=== PATIENT | female | born 1995 | race Caucasian/White ===

== ENCOUNTER 2020-01-25 15:02 | Inpatient (IN) | payer BC, OTHER ==
[2020-01-25] VITALS (22 sets, daily range): BP systolic 118–150; BP diastolic 62–93
[~2020-01-25] VITALS: Ht 62 cm; Wt 75.5 kg
--- NOTE | 2020-01-25 15:00 | NUR ---
SHERINE ARAUZ presented to unit via WHEELCHAIR from HOME, accompanied by S/O , with c/o SROM. SHERINE ARAUZ weighed, gowned, voided, and to bed. EFHM and TOCO applied, VS taken. SHERINE ARAUZ oriented to bed controls, call light, TV, heat, and A/C controls.
[2020-01-25] MEDS ORDERED: D5 LR IV SOLUTION 1,000 ML IV ONE (15:59)
[2020-01-25 16:39] LABS: BILIRUBIN,URINE NEGATIVE (NEGATIVE); CLARITY,URINE CLOUDY; COLOR,URINE YELLOW; GLUCOSE, URINE (UA) NEGATIVE (NEGATIVE); KETONES,URINE NEGATIVE (NEGATIVE); LEUKOCYTE ESTERASE ,URINE NEGATIVE (NEGATIVE); NITRITE,URINE NEGATIVE (NEGATIVE); PH,URINE 7.5 (5-9); PROTEIN,URINE 1+ (NEGATIVE)
[2020-01-25 16:53] LABS: RBC,URINE 25-50 /HPF
[2020-01-25] MEDS ORDERED: PNV1TABL81 PO (16:53)
[2020-01-25 16:54] LABS: AMORPHOUS SEDIMENT,UR FEW AMOR PHOSPHATE /LPF; BACTERIA,URINE TRACE /HPF
[2020-01-25 17:02] LABS: BASOPHILS % (AUTO) 0 % (0-10); EOSINOPHILS % (AUTO) 0 % (0-10); HEMATOCRIT 37 % (35-52); HEMOGLOBIN 12.3 g/dL (11.5-16.0); LYMPHOCYTES # (AUTO) 1.7 10^3/uL (1.0-4.0); LYMPHOCYTES % (AUTO) 13 % (12-44); MEAN CORPUSCULAR HEMOGLOBIN 30 pg (25-34); MEAN CORPUSCULAR HGB CONC 34 g/dL (32-36); MEAN CORPUSCULAR VOLUME 91 fL (80-99); MEAN PLATELET VOLUME 10.1 fL (9.0-12.2); MONOCYTES # (AUTO) 0.8 10^3/uL (0.0-1.0); MONOCYTES % (AUTO) 6 % (0-12); NEUTROPHILS # (AUTO) 10.9 10^3/uL (1.8-7.8); NEUTROPHILS % (AUTO) 80 % (42-75); PLATELET COUNT 237 10^3/uL (130-400); WHITE BLOOD COUNT 13.5 10^3/uL (4.3-11.0)
[2020-01-25] MEDS ORDERED: OXYTOCIN PRE-MIX DRIP 500 ML IV ONE (18:46)
[2020-01-25] MEDS ORDERED: OXYTOCIN PRE-MIX DRIP 500 ML IV SCH (19:02)
[2020-01-25] MEDS: D5 LR IV SOLUTION 1,000 ML IV SCH (19:05)
--- NOTE | 2020-01-25 19:57 | History & Physical-OB ---
OB - Chief Complaint & HPI Date/Time Date of Admission: 01/25/2020 Date seen by a Provider: Jan 25, 2020 Time Seen by a Provider: 06:55 Chief Complaint/History OB-Reason for Admission/Chief: Rupture of Membranes Hx : 2 Hx Para: 0 Expected Date of Delivery: Feb 03, 2020 Gestational Age in Weeks: 38 Gestational Age in Days: 5 History of Labs AB+, Ab neg, Rub Non Imm, HIV/HepB/RPR NR, GBS neg, Abnormal 1 hr GTT, Normal 3 hr GTT Allergies and Home Medications Allergies Coded Allergies: No Known Drug Allergies (Unverified , 01/25/20) Home Medications Pnv No.122/Iron/Folic Acid 1 Each Tablet, 1 EACH PO DAILY, (Reported) Patient Home Medication List Home Medication List Reviewed: Yes OB - History Hx of Present Care: Yes Ultrasounds: Normal mid trimester US Obstetrical Complications: None Medical Complications: None Obstetrical History Hx : 2 Hx Para: 0 Number of Living Children: 0 Delivery History Adverse Rxn to Tranfusion: No Patient Past Medical History None Social History/Family History HIV/AIDS: No Recent Infectious Disease Expo: No Sexually Transmitted Disease: No Alcohol Use: Denies Use Recreational Drug Use: No Smoking Cessation: Never smoker Immunizations Tetanus Booster (TDap): Less than 5yrs Date of Influenza Vaccine: Nov 29, 2019 Rubella: not immune RPR/VDRL: Negative GBS Status: Negative HBsAG: Negative OB - Admission Exam Physical Exam Vitals: Vital Signs 01/25/20 01/25/20 01/25/20 17:06 18:06 18:36 Temp 36.6 Pulse 80 Resp 18 B/P (MAP) 121/79 (93) Pulse Ox 98 O2 Delivery Room Air HEENT: NCAT Heart: Rhythm Normal Lungs: Clear Abdomen: Gravid Cervical Dilatation: 7cm Effacement: 100% Station: -1 Membranes: Ruptured Amniotic Fluid: Clear Heart Rate: 130's Accelerations: Accelerations Present Decelerations: No Decelerations Short Term Variability: Present Contractions on Admission: < 5 Minutes Apart Intensity: Moderate Labs Laboratory Tests Test 01/25/20 16:10 01/25/20 18:50 Range/Units White Blood Count 13.5 H 4.3-11.0 10^3/uL Red Blood Count 4.04 3.80-5.11 10^6/uL Hemoglobin 12.3 11.5-16.0 g/dL Hematocrit 37 35-52 % Mean Corpuscular Volume 91 80-99 fL Mean Corpuscular Hemoglobin 30 25-34 pg Mean Corpuscular Hemoglobin Concent 34 32-36 g/dL Red Cell Distribution Width 11.6 10.0-14.5 % Platelet Count 237 130-400 10^3/uL Mean Platelet Volume 10.1 9.0-12.2 fL Immature Granulocyte % (Auto) 1 % Neutrophils (%) (Auto) 80 H 42-75 % Lymphocytes (%) (Auto) 13 12-44 % Monocytes (%) (Auto) 6 0-12 % Eosinophils (%) (Auto) 0 0-10 % Basophils (%) (Auto) 0 0-10 % Neutrophils # (Auto) 10.9 H 1.8-7.8 10^3/uL Lymphocytes # (Auto) 1.7 1.0-4.0 10^3/uL Monocytes # (Auto) 0.8 0.0-1.0 10^3/uL Eosinophils # (Auto) 0.0 0.0-0.3 10^3/uL Basophils # (Auto) 0.0 0.0-0.1 10^3/uL Immature Granulocyte # (Auto) 0.1 0.0-0.1 10^3/uL Urine Color YELLOW Urine Clarity CLOUDY Urine pH 7.5 5-9 Urine Specific [place] 1.010 L 1.016-1.022 Urine Protein 1+ H NEGATIVE Urine Glucose (UA) NEGATIVE NEGATIVE Urine Ketones NEGATIVE NEGATIVE Urine Nitrite NEGATIVE NEGATIVE Urine Bilirubin NEGATIVE NEGATIVE Urine Urobilinogen 0.2 < = 1.0 MG/DL Urine Leukocyte Esterase NEGATIVE NEGATIVE Urine RBC (Auto) 3+ H NEGATIVE Urine RBC 25-50 H /HPF Urine WBC 2-5 /HPF Urine Squamous Epithelial Cells 10-25 H /HPF Urine Crystals PRESENT H /LPF Urine Amorphous Sediment FEW RIGOBERTO PHOSPHATE H /LPF Urine Bacteria TRACE /HPF Urine Casts NONE /LPF Urine Mucus NEGATIVE /LPF Urine Culture Indicated NO OB - Assessment/Plan/Diagnosis Assessment Assessment: active labor, rupture of membranes Admission Dx Third Trimester 38 week gestation SROM Admission Status: Inpatient Order (span 2 midnights) Reason for Inpatient Admission: Labor Plan Plan: Expectant Management Other Plan 24 yo @ 38.5 wga here after SROM at home Plan Expectant management GBS neg Copy Copies To 1: CHERYL MARCELINO MD, HOLLY R MD Jan 25, 2020 19:57
[2020-01-25] MEDS ORDERED: LIDOCAINE/EPI 2% 1:200,00 (XYLOCAINE) 10 ML VIAL ONE (22:36)
[2020-01-25] MEDS ORDERED: MINERAL OIL CONCENTRATE 99.9% 15 ML UDC ONE (22:36)
[2020-01-25] MEDS ORDERED: PROMETHAZINE INJ 25 MG/ML (PHENERGAN) AMP ONE (23:08)
[2020-01-25] MEDS ORDERED: PROMETHAZINE INJ 25 MG/ML (PHENERGAN) AMP IVP ONE (23:15)
[2020-01-26] VITALS (24 sets, daily range): BP systolic 99–129; BP diastolic 51–87
[2020-01-26] MEDS: D5 LR IV SOLUTION 1,000 ML IV SCH (00:41)
[2020-01-26] MEDS ORDERED: OXYTOCIN PRE-MIX DRIP 500 ML IV SCH (03:04)
--- NOTE | 2020-01-26 03:04 | OB Labor & Delivery Record ---
Vag Delivery Note Vag Delivery Note Date of Delivery: 01/26/20 Preoperative Diagnosis: Asia Contreras is a (24 /Para 2 / 0,Gestational Age (wks)38.5 wga here after SROM at home Postoperative Diagnosis: Same Surgeon: CHERYL MARCELINO Hanger: None Anesthesia: None Delivery Type: @ 0230 Findings: Viable male infant, apgars 7/9, weight 7#9, 3420 grams Lacerations: Bilateral vaginal wall lacerations, no perineal laceration Intact placenta with 3 vessel cord. No nuchal cord, body cord or shoulder dystocia Estimated Blood Loss: 100 ml Complications: None Condition: Stable Description of Procedure: The patient is a 24 year old female who presented in labor after SROM at home. She was admitted and informed consent was obtained. Her labor course was unremarkable. She progressed to complete dilatation and began to push. She was then set up for delivery. The 's head was delivered atraumatically in the SMITHA position. The shoulders and remainder of the infant's body were then delivered after Marlo Manuver. Upon delivery, the head was held below the level of the perineum and the mouth and nares were bulb suctioned. The cord was doubly clamped and cut by FOB and the infant was attended to by the pediatric staff on maternal abdomen. An intact placenta with 3-vessel cord delivered via Helen and there was found to be minimal bleeding.~ Vigorous fundal massage was performed and the fundus was found to be firm. IV oxytocin was given. Examination of the vagina and perineum revealed bilateral vaginal wall lacerations repaired in the usual fashion with 3-0 vicryl suture. Following the repair, sponge, instrument and needle counts were correct. Mom and baby were both in stable condition in the labor suite. Vitals - Labs Vital Signs - I&O Vital Signs Date Time Temp Pulse Resp B/P (MAP) Pulse Ox O2 Delivery O2 Flow Rate FiO2 01/26/20 00:05 36.9 76 18 124/68 (86) Room Air 01/25/20 23:50 89 18 122/93 (103) Room Air 01/25/20 23:35 68 18 125/75 (92) Room Air 01/25/20 23:20 71 18 124/79 (94) Room Air 01/25/20 23:05 75 18 132/83 (99) Room Air 01/25/20 22:50 72 18 130/82 (98) Room Air 01/25/20 22:35 36.6 73 18 142/84 (103) Room Air 01/25/20 22:05 67 18 126/71 (89) Room Air 01/25/20 21:35 68 18 127/88 (101) Room Air 01/25/20 21:20 70 18 125/82 (96) Room Air 01/25/20 21:05 81 18 135/85 (102) Room Air 01/25/20 20:55 74 18 150/90 (110) Room Air 01/25/20 20:40 81 18 122/85 (97) Room Air 01/25/20 20:25 79 18 122/81 (95) Room Air 01/25/20 20:05 80 18 121/86 (98) Room Air 01/25/20 19:50 84 18 121/80 (94) Room Air 01/25/20 19:35 89 18 124/80 (95) Room Air 01/25/20 19:20 86 18 136/62 (86) Room Air 01/25/20 19:05 36.6 78 18 118/81 (93) Room Air 01/25/20 18:36 80 18 121/79 (93) 01/25/20 18:06 36.6 70 18 140/80 (100) 01/25/20 17:06 36.5 71 18 98 Room Air 01/25/20 17:00 71 18 126/81 (96) Labs Laboratory Tests 01/25/20 16:10: White Blood Count 13.5H, Red Blood Count 4.04, Hemoglobin 12.3, Hematocrit 37, Mean Corpuscular Volume 91, Mean Corpuscular Hemoglobin 30, Mean Corpuscular Hemoglobin Concent 34, Red Cell Distribution Width 11.6, Platelet Count 237, Mean Platelet Volume 10.1, Immature Granulocyte % (Auto) 1, Neutrophils (%) (Auto) 80H, Lymphocytes (%) (Auto) 13, Monocytes (%) (Auto) 6, Eosinophils (%) (Auto) 0, Basophils (%) (Auto) 0, Neutrophils # (Auto) 10.9H, Lymphocytes # (Auto) 1.7, Monocytes # (Auto) 0.8, Eosinophils # (Auto) 0.0, Basophils # (Auto) 0.0, Immature Granulocyte # (Auto) 0.1, Urine Color YELLOW, Urine Clarity CLOUDY, Urine pH 7.5, Urine Specific [place] 1.010L, Urine Protein 1+H, Urine Glucose (UA) NEGATIVE, Urine Ketones NEGATIVE, Urine Nitrite NEGATIVE, Urine Bilirubin NEGATIVE, Urine Urobilinogen 0.2, Urine Leukocyte Esterase NEGATIVE, Urine RBC (Auto) 3+H, Urine RBC 25-50H, Urine WBC 2-5, Urine Squamous Epithelial Cells 10-25H, Urine Crystals PRESENTH, Urine Amorphous Sediment FEW RIGOBERTO PHOSPHATEH, Urine Bacteria TRACE, Urine Casts NONE, Urine Mucus NEGATIVE, Urine Culture Indicated NO 01/25/20 18:50: CHERYL MARCELINO MD Jan 26, 2020 03:04
[2020-01-26] MEDS ORDERED: MEASLES,MUMPS,RUBELLA 1 EA INJ SQ ONE (03:15)
[2020-01-26] MEDS ORDERED: TETANUS,DIPTH,PERTUSS P/F (BOOSTRIX) 0.5 ML VIAL IM ONE (03:15)
[2020-01-26] MEDS ORDERED: BENZOCAINE/MENTHOL (DERMOPLAST) 60 ML CAN TP PRN (03:15)
[2020-01-26] MEDS ORDERED: DIBUCAINE (NUPERCAINAL) 1% OINT 30 GM TOP PRN (03:15)
[2020-01-26] MEDS ORDERED: WITCH HAZEL(TUCKS) 40 EA JAR TOP PRN (03:15)
[2020-01-26] MEDS: IBUPROFEN 600 MG (MOTRIN) TAB PO SCH ×3 (03:34→21:59)
[2020-01-26] MEDS: ACETAMINOPHEN 500 MG TAB (TYLENOL) PO SCH ×2 (03:34→14:54)
--- NOTE | 2020-01-26 05:30 | NUR ---
Pt up to the bathroom. Positive void. moderate rubra. Pericare completed. Pt assisted back to bed. Pt wishes to stay in current room at this time. Will let rn know when she is ready to move.
[2020-01-26] MEDS ORDERED: CATHETER FLUSH 10 ML SYR IV SCH (06:00)
--- NOTE | 2020-01-26 08:45 | NUR ---
Pt to [facility], [facility], via wheelchair, accompanied by RN, infant, and S.O, with all personal belongings. No s/s of distress
--- NOTE | 2020-01-26 08:50 | NUR ---
Pt oriented to new room, call light, bed controls, and PP packet. Assessment completed at this time. VSS. FFU/-1, light samia mayo noted, no clots expressed at this time. Pt denies any needs or concerns. Mother reports last fed at 0330. Explained to pt feeding needs and frequency, verbalizes understanding. Infant to breast at this time. Will call if in need of assistance.
[2020-01-26] MEDS: DOCUSATE SODIUM 100 MG (COLACE) CAP PO SCH ×2 (08:51→21:59)
[2020-01-27] MEDS: ACETAMINOPHEN 500 MG TAB (TYLENOL) PO SCH (01:44)
[2020-01-27 04:10] VITALS: BP 122/74
[2020-01-27 05:48] LABS: BASOPHILS % (AUTO) 0 % (0-10); EOSINOPHILS # (AUTO) 0.1 10^3/uL (0.0-0.3); EOSINOPHILS % (AUTO) 1 % (0-10); HEMATOCRIT 32 % (35-52); HEMOGLOBIN 10.3 g/dL (11.5-16.0); LYMPHOCYTES # (AUTO) 2.4 10^3/uL (1.0-4.0); LYMPHOCYTES % (AUTO) 17 % (12-44); MEAN CORPUSCULAR HEMOGLOBIN 31 pg (25-34); MEAN CORPUSCULAR HGB CONC 33 g/dL (32-36); MEAN CORPUSCULAR VOLUME 96 fL (80-99); MEAN PLATELET VOLUME 10.1 fL (9.0-12.2); MONOCYTES # (AUTO) 0.9 10^3/uL (0.0-1.0); MONOCYTES % (AUTO) 6 % (0-12); NEUTROPHILS # (AUTO) 10.6 10^3/uL (1.8-7.8); NEUTROPHILS % (AUTO) 75 % (42-75); PLATELET COUNT 182 10^3/uL (130-400); WHITE BLOOD COUNT 14.2 10^3/uL (4.3-11.0)
[2020-01-27 08:10] LABS: LYMPHOCYTES % (MANUAL) 18 %; MONOCYTES % (MANUAL) 2 %; NEUTROPHILS % (MANUAL) 80 %; RBC MORPH NORMAL; TOXIC GRANULATION/VACUOLAZATIO 2+
--- NOTE | 2020-01-27 08:58 | Discharge Summary ---
Diagnosis/Chief Complaint Date of Admission Jan 25, 2020 at 22:52 Date of Discharge January 27, 2020 Discharge Date: Jan 27, 2020 Admission Diagnosis Admission Diagnosis 1. Intrauterine at 38 weeks gestation Discharge Diagnosis 1. Intrauterine at 38 weeks gestation Reason Hospital Visit 24-year-old 2 now T1L1 who initially presented to labor and delivery during the late evening of January 25, 2020 with spontaneous rupture of membranes. Patient was noted to be at 38 weeks 6 days gestation. Her GBS status at 36 weeks was noted to be negative. Patient received care through [facility] with Dr. Ramirez. Discharge Summary-OBS Procedures 1. Spontaneous vaginal delivery 2. Repair of bilateral vaginal wall lacerationDr. 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 Patient delivered a term viable male. See labor and delivery note for full details Following delivery she underwent routine care orders. She had no complications during the remainder of hospital stay. She had initial hemoglobin on January 24 of 12.3 and this was compared to hemoglobin of 10.3 on day of . She had tolerated regular diet and was ambulatory without shortness of breath or leg pain. She was eager for dismissal in the morning of January 27, 2020. Pending Labs Laboratory Tests 01/27/20 05:20: White Blood Count 14.2, Red Blood Count 3.30, Hemoglobin 10.3, Hematocrit 32, Mean Corpuscular Volume 96, Mean Corpuscular Hemoglobin 31, Mean Corpuscular Hemoglobin Concent 33, Red Cell Distribution Width 12.0, Platelet Count 182, Mean Platelet Volume 10.1, Immature Granulocyte % (Auto) 1, Neutrophils (%) (Auto) 75, Lymphocytes (%) (Auto) 17, Monocytes (%) (Auto) 6, Eosinophils (%) (Auto) 1, Basophils (%) (Auto) 0, Neutrophils # (Auto) 10.6, Lymphocytes # (Auto) 2.4, Monocytes # (Auto) 0.9, Eosinophils # (Auto) 0.1, Basophils # (Auto) 0.0, Immature Granulocyte # (Auto) 0.1, Neutrophils % (Manual) 80, Lymphocytes % (Manual) 18, Monocytes % (Manual) 2, Toxic Granulation 2+, Blood Morphology Comment NORMAL Discharge Instructions to patient/family Please see electronic discharge instructions given to patient. Discharge Medications Reviewed and agree with Discharge Medication list on patient's Discharge Instruction sheet Clinical Quality Measures DVT/VTE Risk/Contraindication: Risk Factor Score Per Nursin RFS Level Per Nursing on Admit: 1=Low/No VTE PPX MICHAEL CLEANING MD Jan 27, 2020 08:58
--- NOTE | 2020-01-27 09:01 | Discharge Inst-Women's Service ---
Discharge Inst-Women's Serv Depart Medication/Instructions New, Converted or Re-Newed RX: Other Instructions for cramps may take [id number] ibuprofen 200 mg and take 3 tablets as needed every 6 hours Problems Reviewed?: Yes Consults/Follow Up Additional Follow Up: Yes (Dr Ramirez in 6 weeks.) Activity Driving Instructions: No Driving for 1 Week Nothing Inside Vagina: No [place] (for 6 weeks.) Diet Discharge Diet: Regular Diet Return to The Hospital For: as below Symptoms to Report to : Bleeding Excessive, Pain Increased, Vaginal Discharge Foul For Any Problems or Questions: Contact Your Physician MICHAEL CLEANING MD Jan 27, 2020 09:01
[2020-01-27] MEDS: IBUPROFEN 600 MG (MOTRIN) TAB PO SCH (09:09)
[2020-01-27] MEDS: DOCUSATE SODIUM 100 MG (COLACE) CAP PO SCH (09:09)
--- NOTE | 2020-01-27 09:10 | NUR ---
RN to room for assessment. FFU/-1, perla mayo reported, two dime sized clots passed. VSS. Pt denies any needs or concerns at this time. Plans to discharge Addendum: 01/27/20 at 0926 by JYOTI SANTO RN Pt refused MMR vaccine at this time
[2020-01-27 09:11] VITALS: BP 117/68
--- NOTE | 2020-01-27 09:30 | NUR ---
Discharge instructions explained to pt with copy provided. Follow up care scheduled for pt. Pt verbalizes understanding and signs to verify. Denies any needs or concerns at this time
--- NOTE | 2020-01-27 14:05 | NUR ---
Pt wheeled off unit via wheelchair accompanied by RN, S.O, and . All personal belongings with pt. No s/s of distress
== END 2020-01-27 14:05 | disposition home or self-care (01) | DRG 807 ==
LOC: WSo 15:02 → LDRP 15:03 → WSo 22:49 → LDRP 22:52
PROVIDERS: ADMIT Family Medicine; ATTEND Family Medicine
PROC: 10E0XZZ Delivery of Products of Conception, External Approach (ICD-10-PCS; principal; 2020-01-26)
PROC: 0UQGXZZ Repair Vagina, External Approach (ICD-10-PCS; 2020-01-26)
DX: O71.4 Obstetric high vaginal laceration alone (principal); Z37.0 Single live birth; Z3A.38 38 weeks gestation of pregnancy
CPT/HCPCS: 36415; 81000; 85007; 85025; 85027; 86850; 86900; 86901; 87635; 99212

== ENCOUNTER 2022-03-28 01:39 | Inpatient (IN) | payer MEDICAID ==
[2022-03-28] VITALS (28 sets, daily range): BP systolic 100–148; BP diastolic 51–95
[~2022-03-28] VITALS: Ht 157.5 cm; Wt 81.9 kg
[~2022-03-28 01:39] MED LIST: PNV1TABL81 PO
[2022-03-28] MEDS ORDERED: D5 LR IV SOLUTION 1,000 ML IV ONE (02:19)
[2022-03-28] MEDS ORDERED: MINERAL OIL 30 ML UDC TOP PRN (02:30)
[2022-03-28] MEDS ORDERED: D5 LR IV SOLUTION 1,000 ML IV SCH (02:30)
[2022-03-28 02:35] LABS: BASOPHILS % (AUTO) 0 % (0-10); EOSINOPHILS % (AUTO) 0 % (0-10); HEMATOCRIT 36 % (35-52); HEMOGLOBIN 12.5 g/dL (11.5-16.0); LYMPHOCYTES # (AUTO) 1.9 10^3/uL (1.0-4.0); LYMPHOCYTES % (AUTO) 16 % (12-44); MEAN CORPUSCULAR HEMOGLOBIN 32 pg (25-34); MEAN CORPUSCULAR HGB CONC 35 g/dL (32-36); MEAN CORPUSCULAR VOLUME 91 fL (80-99); MEAN PLATELET VOLUME 10.6 fL (9.0-12.2); MONOCYTES # (AUTO) 0.7 10^3/uL (0.0-1.0); MONOCYTES % (AUTO) 6 % (0-12); NEUTROPHILS # (AUTO) 9.6 10^3/uL (1.8-7.8); NEUTROPHILS % (AUTO) 78 % (42-75); PLATELET COUNT 202 10^3/uL (130-400); WHITE BLOOD COUNT 12.3 10^3/uL (4.3-11.0)
[2022-03-28] MEDS ORDERED: OXYTOCIN PRE-MIX DRIP 500 ML IV ONE (02:49)
[2022-03-28] MEDS ORDERED: MINERAL OIL 30 ML UDC ONE (02:49)
--- NOTE | 2022-03-28 02:58 | History & Physical-OB ---
OB - Chief Complaint & HPI Date/Time Date of Admission: Date of Admission: Date seen by a Provider: Mar 28, 2022 Time Seen by a Provider: 02:45 Chief Complaint/History OB-Reason for Admission/Chief: Onset of Labor Hx : 3 Hx Para: 1 Expected Date of Delivery: Mar 30, 2022 Gestational Age in Weeks: 39 Gestational Age in Days: 5 History of Labs AB pos, antibody neg, RNI. HIV/HepB/HepC/RPR NR. GC/chlamydia neg. GBS neg. TSH 4.64 at 37 weeks. Other Late start of care, initial visit labeled as 9 weeks based on LMP, but US same day showed 24 weeks, had 2 further visits at 37 and 38 weeks, reportedly due to family illnesses. Allergies and Home Medications Allergies Coded Allergies: No Known Drug Allergies (Unverified , 01/25/20) Patient Home Medication List Home Medication List Reviewed: Yes Pnv No.122/Iron/Folic Acid ( Multi Tablet) 1 Each Tablet, 1 EACH PO DAILY, (Reported) Entered as Reported by: MARIAMA ELMORE on 01/25/20 1811 Last Action: Reviewed OB - History Hx of Present Ultrasounds: Normal mid trimester US Obstetrical Complications: Other (limited care, seen at 24 weeks, 37 and 38 weeks, no gestational diabetes screen) Medical Complications: None Information Induced Hypertension: No Maternal Gestational Diabetes: No Hemorrhage: No Obstetrical History Hx : 3 Hx Para: 1 Hx # Term Pregnancies: 1 Hx # Pregnancies: 0 Number of Living Children: 1 Hx Termination: No Hx Total # of Abortions (Spona: 1 Hx Multiple Gestation: No Hx Ectopic : No Hx Stillbirth: No Hx Complication: No Hx Induced Hypertens: No Hx Maternal Gestational Diabet: No Hx Hemorrhage: No Delivery History Hx Dystocia: No Hx Forceps Assisted Delivery: No Hx Vacuum Extraction Assisted: No Hx Placenta Abnormality: No Hx Distress: No Hx Large For Gestational Age I: No Hx Small for Gestational Age I: No Hx Section: No Hx Vaginal Delivery Post C-Sec: No Hx Blood Disorders: No Adverse Rxn to Tranfusion: No Patient Past Medical History None Social History/Family History Alcohol Use: Denies Use Recreational Drug Use: No Smoking Cessation: Never smoker Immunizations Influenza Vaccine Up-to-Date: No; Not Current Tetanus Booster (TDap): Less than 5yrs (2019) Rubella: not immune RPR/VDRL: Negative GBS Status: Negative HBsAG: Negative OB - Admission Exam Physical Exam HEENT: NCAT Extremities: Normal Cervical Dilatation: 8cm Effacement: Other (90%) Station: -3 Membranes: Intact (AROM at time of exam) Heart Rate: 130's Accelerations: Accelerations Present Short Term Variability: Present Picker Packer Variability: Average (6-25) Contractions on Admission: < 5 Minutes Apart Labs Laboratory Tests Test 03/28/22 02:10 Range/Units White Blood Count 12.3 H 4.3-11.0 10^3/uL Red Blood Count 3.97 3.80-5.11 10^6/uL Hemoglobin 12.5 11.5-16.0 g/dL Hematocrit 36 35-52 % Mean Corpuscular Volume 91 80-99 fL Mean Corpuscular Hemoglobin 32 25-34 pg Mean Corpuscular Hemoglobin Concent 35 32-36 g/dL Red Cell Distribution Width 11.6 10.0-14.5 % Platelet Count 202 130-400 10^3/uL Mean Platelet Volume 10.6 9.0-12.2 fL Immature Granulocyte % (Auto) 0 % Neutrophils (%) (Auto) 78 H 42-75 % Lymphocytes (%) (Auto) 16 12-44 % Monocytes (%) (Auto) 6 0-12 % Eosinophils (%) (Auto) 0 0-10 % Basophils (%) (Auto) 0 0-10 % Neutrophils # (Auto) 9.6 H 1.8-7.8 10^3/uL Lymphocytes # (Auto) 1.9 1.0-4.0 10^3/uL Monocytes # (Auto) 0.7 0.0-1.0 10^3/uL Eosinophils # (Auto) 0.0 0.0-0.3 10^3/uL Basophils # (Auto) 0.0 0.0-0.1 10^3/uL Immature Granulocyte # (Auto) 0.1 0.0-0.1 10^3/uL OB - Assessment/Plan/Diagnosis Assessment Admission Dx Active labor Term intrauterine Limited care GBS negative Rubella non-immune Admission Status: Inpatient Order (span 2 midnights) Reason for Inpatient Admission: Labor, delivery and course Plan Plan: Expectant Management (AROM done at time of exam with clear fluid return) Problems: (1) Active labor at term Assessment & Plan: Anticipate vaginal delivery (2) Rubella non-immune status, antepartum Assessment & Plan: MMR LAUREN RADER MD Mar 28, 2022 02:58
[2022-03-28] MEDS ORDERED: CATHETER FLUSH 10 ML SYR IV SCH ×2 (06:00→14:00)
--- NOTE | 2022-03-28 07:55 | OB Labor & Delivery Record ---
Vag Delivery Note Vag Delivery Note Date of Delivery: 03/28/22 Preoperative Diagnosis: Asia Contreras is a (26 /Para 3 / 1,Gestational Age (wks)39 weeks that presented in active labor Postoperative Diagnosis: Same Surgeon: CHERYL MARCELINO MD Professor Of Oceanography: Jayne Felix MS4 Anesthesia: Natural Delivery Type: @ 0737 Findings: Viable male , apgars 9/9, weight 8#1, 3655 grams Lacerations: right yoselyn urethral laceration Intact placenta with 3 vessel cord. No nuchal cord, body cord or shoulder dystocia Estimated Blood Loss: 125 ml Complications: None Condition: Stable Description of Procedure: The patient is a 26 year old female who presented in active labor. She was admitted and informed consent was obtained. Her labor course was unremarkable. She progressed to complete dilatation and began to push. She was then set up for delivery. The infant's head was delivered atraumatically in the ANNABEL position. The shoulders and remainder of the infant's body were then delivered without difficulty. Upon delivery, the infant was vigorous and placed on maternal chest and the mouth and nares were bulb suctioned. After a delay of 2 mins cord was doubly clamped and cut and the remained on maternal chest. An intact placenta with 3-vessel cord delivered via Helen and there was found to be minimal bleeding.~ Vigorous fundal massage was performed and the fundus was found to be firm. IV oxytocin was given. Examination of the vagina and perineum revealed a small right periurethral laceration that did not require repair. Following the repair, sponge, instrument and needle counts were correct. Mom and baby were both in stable condition in the labor suite. Vitals - Labs Vital Signs - I&O Vital Signs Date Time Temp Pulse Resp B/P (MAP) Pulse Ox O2 Delivery O2 Flow Rate FiO2 03/28/22 04:24 95 20 148/95 (112) Room Air 03/28/22 03:54 69 18 117/79 (92) Room Air 03/28/22 03:42 77 20 117/72 (87) Room Air 03/28/22 03:24 78 20 116/77 (90) Room Air 03/28/22 03:06 37.0 74 18 123/74 (90) 98 Room Air 03/28/22 02:00 36.9 79 18 98 Room Air 03/28/22 02:00 36.9 79 18 110/67 (81) 98 Room Air Labs Laboratory Tests 03/28/22 02:10: White Blood Count 12.3H, Red Blood Count 3.97, Hemoglobin 12.5, Hematocrit 36, Mean Corpuscular Volume 91, Mean Corpuscular Hemoglobin 32, Mean Corpuscular Hemoglobin Concent 35, Red Cell Distribution Width 11.6, Platelet Count 202, Mean Platelet Volume 10.6, Immature Granulocyte % (Auto) 0, Neutrophils (%) (Auto) 78H, Lymphocytes (%) (Auto) 16, Monocytes (%) (Auto) 6, Eosinophils (%) (Auto) 0, Basophils (%) (Auto) 0, Neutrophils # (Auto) 9.6H, Lymphocytes # (Auto) 1.9, Monocytes # (Auto) 0.7, Eosinophils # (Auto) 0.0, Basophils # (Auto) 0.0, Immature Granulocyte # (Auto) 0.1 CHERYL MARCELINO MD Mar 28, 2022 07:55
[2022-03-28] MEDS: OXYTOCIN PRE-MIX DRIP 500 ML IV SCH ×2 (08:00→08:18)
[2022-03-28] MEDS ORDERED: MEASLES,MUMPS,RUBELLA 1 EA INJ SQ ONE (08:00)
[2022-03-28] MEDS ORDERED: BENZOCAINE/MENTHOL (DERMOPLAST) 56 ML CAN TP PRN (08:00)
[2022-03-28] MEDS ORDERED: WITCH HAZEL(TUCKS) 40 EA JAR TOP PRN (08:00)
[2022-03-28] MEDS: DOCUSATE SODIUM 100 MG (COLACE) CAP PO SCH ×2 (09:00→21:08)
[2022-03-28] MEDS: ACETAMINOPHEN 500 MG TAB (TYLENOL) PO SCH ×2 (09:44→16:01)
[2022-03-28] MEDS: IBUPROFEN 600 MG (MOTRIN) TAB PO SCH ×3 (09:44→21:08)
[2022-03-29 00:34] VITALS: BP 118/58
[2022-03-29] MEDS: ACETAMINOPHEN 500 MG TAB (TYLENOL) PO SCH ×4 (00:34→13:08)
[2022-03-29 03:19] VITALS: BP 111/60
[2022-03-29] MEDS: IBUPROFEN 600 MG (MOTRIN) TAB PO SCH ×2 (03:19→09:07)
[2022-03-29 05:56] LABS: BASOPHILS % (AUTO) 0 % (0-10); EOSINOPHILS # (AUTO) 0.1 10^3/uL (0.0-0.3); EOSINOPHILS % (AUTO) 1 % (0-10); HEMATOCRIT 31 % (35-52); HEMOGLOBIN 10.6 g/dL (11.5-16.0); LYMPHOCYTES # (AUTO) 2.6 10^3/uL (1.0-4.0); LYMPHOCYTES % (AUTO) 18 % (12-44); MEAN CORPUSCULAR HEMOGLOBIN 32 pg (25-34); MEAN CORPUSCULAR HGB CONC 34 g/dL (32-36); MEAN CORPUSCULAR VOLUME 93 fL (80-99); MEAN PLATELET VOLUME 10.6 fL (9.0-12.2); MONOCYTES # (AUTO) 0.9 10^3/uL (0.0-1.0); MONOCYTES % (AUTO) 6 % (0-12); NEUTROPHILS # (AUTO) 10.9 10^3/uL (1.8-7.8); NEUTROPHILS % (AUTO) 74 % (42-75); PLATELET COUNT 159 10^3/uL (130-400); WHITE BLOOD COUNT 14.7 10^3/uL (4.3-11.0)
[2022-03-29] MEDS ORDERED: FERROUS SULF 325 MG (IRON) TAB PO SCH (07:00)
[2022-03-29] MEDS ORDERED: DOCU100C37 PO (07:44)
[2022-03-29] MEDS ORDERED: IBUP-844 PO (07:44)
[2022-03-29] MEDS ORDERED: FERR325T24 PO (07:44)
[2022-03-29 08:17] VITALS: BP 115/72
[2022-03-29] MEDS: DOCUSATE SODIUM 100 MG (COLACE) CAP PO SCH (09:06)
--- NOTE | 2022-03-29 12:19 | Discharge Summary ---
Discharge Summary Hospital Course Hospital Course Date of Admission: Mar 28, 2022 at 02:12 Admission Diagnosis : Term intrauterine at 39 weeks gestation Active labor Family Physician/Provider: Mary,Local Physician Date of Discharge: 03/29/22 Discharge Diagnosis: s/p spontaneous vaginal delivery asymptomatic acute blood loss anemia Hospital Course: 26 yo G2 now P2 presented in active labor at full term, had uncomplicated vaginal delivery and unremarkable course. Labs and Pending Lab Test: Laboratory Tests 03/29/22 05:02: White Blood Count 14.7H, Red Blood Count 3.34L, Hemoglobin 10.6L, Hematocrit 31L , Mean Corpuscular Volume 93, Mean Corpuscular Hemoglobin 32, Mean Corpuscular Hemoglobin Concent 34, Red Cell Distribution Width 11.7, Platelet Count 159, M david Platelet Volume 10.6, Immature Granulocyte % (Auto) 1, Neutrophils (%) (Auto) 74, Lymphocytes (%) (Auto) 18, Monocytes (%) (Auto) 6, Eosinophils (%) (Auto) 1, Basophils (%) (Auto) 0, Neutrophils # (Auto) 10.9H, Lymphocytes # (Auto) 2.6, Monocytes # (Auto) 0.9, Eosinophils # (Auto) 0.1, Basophils # (Auto) 0.0, Immature Granulocyte # (Auto) 0.1 Home Meds Active Docusate Sodium 100 Mg Capsule 100 Mg PO BID PRN Ibu (Ibuprofen) 600 Mg Tablet 600 Mg PO Q6H PRN Ferosul (Ferrous Sulfate) 325 Mg (65 Mg Iron) Tablet 325 Mg PO DAILY@0700 Reported Multi Tablet (Pnv No.122/Iron/Folic Acid) 1 Each Tablet 1 Each PO DAILY Assessment/Pt DC Instructions Follow up with Dr. Ramirez in 6 weeks. Discharge Diet: No Restrictions Activity as Tolerated: Yes (avoid strenuous activity x 6 weeks) Discharge Physical Examination Allergies: Coded Allergies: No Known Drug Allergies (Unverified , 01/25/20) General Appearance: No Apparent Distress, WD/WN Respiratory: Lungs Clear, Normal Breath Sounds Cardiovascular: Regular Rate, Rhythm Gastrointestinal: Other (fundus firm at umbilicus, approprately ttp) Extremity: No Pedal Edema Skin: Normal Color, Warm/Dry Neurologic/Psychiatric: Alert, Normal Mood/Affect Copy Copies To 1: CHERYL RAMIREZ MDOCH,LAUREN [place] MD Mar 29, 2022 12:18
== END 2022-03-29 14:45 | disposition home or self-care (01) | DRG 806 ==
LOC: LDRP 01:39 → WSo 01:39 → LDRP 02:12
PROVIDERS: ADMIT Family Medicine; ATTEND Family Medicine
PROC: 10E0XZZ Delivery of Products of Conception, External Approach (ICD-10-PCS; principal; 2022-03-28)
PROC: 10907ZC Drainage of Amniotic Fluid, Therapeutic from Products of Conception, Via Natural or Artificial Opening (ICD-10-PCS; 2022-03-28)
DX: O71.82 Other specified trauma to perineum and vulva (principal); D62 Acute posthemorrhagic anemia; Z37.0 Single live birth; Z3A.39 39 weeks gestation of pregnancy; O90.81 Anemia of the puerperium
CPT/HCPCS: 36415; 85025; 85027; 86780; 86850; 86900; 86901; 99212